=== PATIENT | female | born 1990 | race Two or more races ===

== ENCOUNTER 2017-06-05 16:26 | Emergency (ER) | payer MEDICAID ==
[2017-06-05 16:31] VITALS: BP 93/73
== END 2017-06-05 18:21 | disposition home or self-care (01) ==
LOC: ED 17:52
DX: Z76.0 Encounter for issue of repeat prescription (principal); J45.909 Unspecified asthma, uncomplicated; R05 Cough; M41.9 Scoliosis, unspecified; Q02 Microcephaly
CPT/HCPCS: 99283

== ENCOUNTER 2017-08-22 10:08 | Inpatient (IN) | payer MEDICAID ==
[~2017-08-22] VITALS: Ht 129.5 cm; Wt 13.7 kg
[2017-08-22] MEDS ORDERED: SODIUM CHLORIDE FLUSH 10ML SYR IVF ONE (10:30)
[2017-08-22] MEDS ORDERED: CLON0.5T20 PO (10:39)
[2017-08-22] MEDS ORDERED: OXCA600T PO (10:39)
[2017-08-22] MEDS ORDERED: LAMO200T5 PO (10:39)
[2017-08-22 11:00] LABS: RAPID INFLUENZA A Negative (Negative); RAPID INFLUENZA B Negative (Negative)
[2017-08-22 11:28] LABS: HEMATOCRIT 36.7 % (34.6-47.8); WHITE BLOOD COUNT 2.5 x10^3/uL (3.4-10)
[2017-08-22 11:40] LABS: ASPARTATE AMINO TRANSFERASE 94 U/L (15-37); BLOOD UREA NITROGEN 29 mg/dL (7-18)
[2017-08-22 11:51] LABS: DIFF TOTAL CELLS COUNTED 100 CELL DIFF
[2017-08-22 11:59] LABS: LARGE PLATELETS 1+; VERIFY COUNTS? YES
[2017-08-22] MEDS ORDERED: AMPICILLIN IVPB ONE (13:00)
[2017-08-22] MEDS ORDERED: SULBACTAM IVPB ONE (13:00)
[2017-08-22] MEDS ORDERED: SODIUM CHLORIDE 0.9% IVPB ONE (13:00)
[2017-08-22] MEDS ORDERED: SODIUM CHLORIDE 0.9% 1,000 ML IV ONE (13:04)
[2017-08-22] MEDS ORDERED: SODIUM CHLORIDE 0.9% 1,000 ML IV SCH (13:12)
[2017-08-22] MEDS ORDERED: PHARMACY INSTRUCTION MC PRN (13:30)
[2017-08-22] MEDS ORDERED: SODIUM CHLORIDE FLUSH 10ML SYR IVF PRN (13:30)
[2017-08-22 20:30] VITALS: BP 90/66
[2017-08-22] MEDS: LACTULOSE 10 GM/15 ML UDC PO SCH (20:37)
[2017-08-22] MEDS: LAMOTRIGINE 200 MG TABLET PO SCH (20:38)
[2017-08-22] MEDS ORDERED: OXCARBAZEPINE 150 MG TABLET PO SCH (21:00)
[2017-08-22] MEDS: AMPICILLIN IV SCH (23:37)
[2017-08-22] MEDS: SULBACTAM IV SCH (23:37)
[2017-08-22] MEDS: SODIUM CHLORIDE 0.9% IV SCH (23:37)
[2017-08-23] MEDS ORDERED: AMIODARONE 50 MG/ML, 3ML ONE (02:00)
[2017-08-23] MEDS ORDERED: EPINEPHRINE SYRINGE 0.1 MG/ML, 10ML ONE ×2 (02:00→08:00)
[2017-08-23] MEDS ORDERED: SODIUM BICARB 8.4%, 50ML SYRINGE ONE (02:00)
[2017-08-23] MEDS ORDERED: ATROPINE SYRINGE 0.1 MG/ML, 10ML ONE (02:00)
[2017-08-23] MEDS ORDERED: VECURONIUM 10 MG ONE (02:30)
[2017-08-23] MEDS ORDERED: EPINEPHRINE 2 MG in SODIUM CHLORIDE 0.9% 248 ML IV PRN (02:30)
[2017-08-23] MEDS ORDERED: SODIUM BICARBONATE 8.4% 150 MEQ in DEXTROSE 5% 1,000 ML IV SCH (02:30)
[2017-08-23] MEDS ORDERED: ETOMIDATE 20 MG/10 ML ONE (02:30)
[2017-08-23] MEDS ORDERED: DOBUTAMINE/D5W PMX 250 ML ONE (02:37)
[2017-08-23 02:51] LABS: ABG COLLECTION SITE LEFT RADIAL; COLLATERAL CIRCULATION TESTING NORMAL
[2017-08-23 02:55] LABS: HEMATOCRIT 26.4 % (34.6-47.8); HEMOGLOBIN 8.7 g/dL (11.7-16.4); WHITE BLOOD COUNT 2.2 x10^3/uL (3.4-10)
[2017-08-23 02:59] LABS: ASPARTATE AMINO TRANSFERASE 709 U/L (15-37); BLOOD UREA NITROGEN 35 mg/dL (7-18)
[2017-08-23] MEDS ORDERED: DOBUTAMINE/D5W PMX 250 ML IV PRN (03:00)
[2017-08-23 03:20] LABS: DIFF TOTAL CELLS COUNTED 100 CELL DIFF
[2017-08-23 03:27] LABS: VERIFY COUNTS? YES
[2017-08-23 03:28] LABS: ANISOCYTOSIS 1+; LARGE PLATELETS 1+; OVALOCYTES 1+; TARGET CELLS 1+
[2017-08-23] MEDS ORDERED: CODE BLUE RESPONSE XX ONE (03:30)
[2017-08-23] MEDS ORDERED: PHENYLEPHRINE 20 MG in SODIUM CHLORIDE 0.9% 248 ML IV PRN (03:30)
[2017-08-23] MEDS ORDERED: DOPAMINE/D5W PMX 250 ML ONE (03:44)
[2017-08-23] MEDS ORDERED: PHARMACY MAY ADJ FOR RENAL FX MC SCH (04:00)
[2017-08-23] MEDS ORDERED: DOPAMINE/D5W PMX 250 ML IV PRN (04:00)
[2017-08-23] MEDS ORDERED: LIDOCAINE-MPF 1%, 2ML ENDO PRN (04:00)
[2017-08-23 04:44] LABS: ABG COLLECTION SITE RIGHT RADIAL; COLLATERAL CIRCULATION TESTING NORMAL
[2017-08-23 04:52] LABS: BLOOD UREA NITROGEN 36 mg/dL (7-18)
[2017-08-23 05:23] LABS: ASPARTATE AMINO TRANSFERASE 822 U/L (15-37)
[2017-08-23] MEDS: SODIUM CHLORIDE 0.9% IV SCH (05:48)
[2017-08-23] MEDS: SULBACTAM IV SCH (05:48)
[2017-08-23] MEDS: AMPICILLIN IV SCH (05:48)
[2017-08-23] MEDS ORDERED: PHENYLEPHRINE 80 MG in SODIUM CHLORIDE 0.9% 242 ML IV PRN (06:00)
[2017-08-23] MEDS ORDERED: DEXTROSE 50%, 50ML SYRINGE ONE (08:00)
[2017-08-23] MEDS ORDERED: OXCARBAZEPINE 150 MG TABLET PO SCH (09:00)
[2017-08-23] MEDS ORDERED: BISACODYL 10 MG SUPP PR SCH ×2 (09:00)
[2017-08-23] MEDS: PIPERACILLIN/TAZO/PMX 3.375GM 50 ML IV SCH ×2 (09:03→14:00)
[2017-08-23] MEDS: LAMOTRIGINE 200 MG TABLET PO SCH (09:04)
[2017-08-23] MEDS: LACTULOSE 10 GM/15 ML UDC PO SCH (09:04)
[2017-08-23 10:47] LABS: ABG COLLECTION SITE RIGHT RADIAL; COLLATERAL CIRCULATION TESTING NORMAL
[2017-08-23 11:21] LABS: ASPARTATE AMINO TRANSFERASE 813 U/L (15-37); BLOOD UREA NITROGEN 31 mg/dL (7-18)
[2017-08-23] MEDS ORDERED: POTASSIUM CHLORIDE 40 MEQ in SODIUM CHLORIDE 0.9% 100 ML IV ONE (12:00)
[2017-08-23] MEDS ORDERED: SODIUM BICARBONATE 8.4% 50 MEQ in DEXTROSE 5% 1,000 ML IV SCH (12:00)
[2017-08-23] MEDS ORDERED: SODIUM CHLORIDE 0.9% 1,000 ML IV SCH (13:12)
== END 2017-08-23 18:23 | disposition expired | DRG 871 ==
LOC: ED 13:11 → SUATTDRO 13:11 → EDIP 13:12 → ED 13:20 → 4WST 14:23 → CCU 08-23 02:34
PROVIDERS: ADMIT Hospitalist; ATTEND Hospitalist
PROC: 02HV33Z Insertion of Infusion Device into Superior Vena Cava, Percutaneous Approach (ICD-10-PCS; principal; 2017-08-23)
PROC: 5A12012 Performance of Cardiac Output, Single, Manual (ICD-10-PCS; 2017-08-23)
PROC: 5A1935Z Respiratory Ventilation, Less than 24 Consecutive Hours (ICD-10-PCS; 2017-08-23)
PROC: B548ZZA Ultrasonography of Superior Vena Cava, Guidance (ICD-10-PCS; 2017-08-23)
PROC: 0BH17EZ Insertion of Endotracheal Airway into Trachea, Via Natural or Artificial Opening (ICD-10-PCS; 2017-08-23)
DX: A41.9 Sepsis, unspecified organism (principal); J69.0 Pneumonitis due to inhalation of food and vomit; I46.9 Cardiac arrest, cause unspecified; E43 Unspecified severe protein-calorie malnutrition; R56.9 Unspecified convulsions; D70.9 Neutropenia, unspecified; T68.XXXA Hypothermia, initial encounter; M41.9 Scoliosis, unspecified; Z99.81 Dependence on supplemental oxygen; Q02 Microcephaly; N39.0 Urinary tract infection, site not specified; Z68.1 Body mass index [BMI] 19.9 or less, adult; B96.5 Pseudomonas (aeruginosa) (mallei) (pseudomallei) as the cause of diseases classified elsewhere; B96.89 Other specified bacterial agents as the cause of diseases classified elsewhere; J06.9 Acute upper respiratory infection, unspecified; J20.9 Acute bronchitis, unspecified; K59.00 Constipation, unspecified; R09.02 Hypoxemia
CPT/HCPCS: 36415; 36569; 36600; 71010; 76937; 77001; 80053; 80175; 81001; 82803; 82962; 83605; 83735; 84100; 84145; 84439; 84443; 84478; 85025; 87040; 87070; 87077; 87081; 87086; 87186; 87205; 87400; 92950; 94002; 94003; J0295; J0461; J1265; J2543; J3480; J7070; C1751; J0171; J0282; J2370; J7030; J7050